=== PATIENT | male | born 1980 | race African-American/Black ===

== ENCOUNTER 2016-12-28 03:31 | Emergency (ER) | payer SELFPAY ==
--- NOTE | 2016-12-28 04:08 | ER Document Report ---
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 It started yesterday. No fever. No facial swelling. He has not had the money to fill his antihypertensive medications that are waiting at the pharmacy for him. Associated Symptoms: None Exacerbated by: Other - Eating Relieved by: Denies Similar symptoms previously: Yes Recently seen / treated by doctor: No - ROS ROS below otherwise negative: Yes Systems Reviewed and Negative: Yes All other systems reviewed and negative Past Medical History - General Information source: Patient - Social History Smoking Status: Current Every Day Smoker Frequency of alcohol use: None Drug Abuse: None Lives with: Spouse/Significant other Family History: Reviewed & Not Pertinent, Other - cerebral aneurysms - Past Medical History Cardiac Medical History: Reports: Hx Hypertension Neurological Medical History: Reports: Hx Migraine Surgical Hx: Negative - Immunizations Immunizations up to date: Yes Hx Diphtheria, Pertussis, Tetanus Vaccination: Yes - <5 years Vertical Provider Document - CONSTITUTIONAL Agree With Documented VS: Yes Exam Limitations: No Limitations - INFECTION CONTROL TRAVEL OUTSIDE OF THE [place] IN LAST 30 DAYS: No - HEENT HEENT: [place] Notes: Left top second molar decay to the pulp. No third molar present. Other teeth with decay. No abscess. No adenopathy. - NECK Neck: Supple. negative: Lymphadenopathy-Left, Lymphadenopathy-Right - RESPIRATORY Respiratory: Breath Sounds Normal, No Respiratory Distress - CARDIOVASCULAR Cardiovascular: Regular Rate, Regular Rhythm - MUSCULOSKELETAL/EXTREMETIES Musculoskeletal/Extremeties: MAEW, FROM - NEURO Level of Consciousness: Awake, Alert - DERM Integumentary: Warm, Dry Discharge - Discharge Clinical Impression: dental pain and decay Condition: Good Disposition: HOME, SELF-CARE Instructions: Penicillin V K ([facility]), Toothache ([facility]), Anti-Inflammatory Medication ([facility]), Dentist Additional Instructions: See the dentist Return to the emergency room if any worsening of the symptoms Take the antibiotics. Please complete the patient satisfaction survey if you get one, and return it.. If you do not receive a survey, then you can go to the [facility] website, [email or web address] and place your comments about your very good care. Thank you very much. It was a pleasure being your medical provider today. Prescriptions: Ibuprofen [Motrin 800 mg Tablet] 800 mg PO Q8HP PRN #30 tablet PRN Reason: Penicillin V Potassium [Penicillin Vk 500 mg Tablet] 500 mg PO QID #40 tablet
[2016-12-28] MEDS ORDERED: PENICILLIN V POTASSIUM 500 MG TABLET PO ONE (04:17)
[2016-12-28] MEDS ORDERED: IBUPROFEN 800 MG TABLET PO ONE (04:17)
[2016-12-28] MEDS ORDERED: ACETAMINOPHEN 325 MG TABLET PO ONE (04:20)
[2016-12-28 06:27] VITALS: BP 142/105
== END 2016-12-28 04:30 | disposition home or self-care (01) ==
LOC: ER 03:31
DX: K02.9 Dental caries, unspecified (principal); K08.89 Other specified disorders of teeth and supporting structures; I10 Essential (primary) hypertension; Z59.9 Problem related to housing and economic circumstances, unspecified; F17.200 Nicotine dependence, unspecified, uncomplicated
CPT/HCPCS: 99283

== ENCOUNTER 2017-01-27 04:31 | Emergency (ER) | payer SELFPAY ==
[2017-01-27 04:42] VITALS: BP 156/122
[2017-01-27] MEDS ORDERED: IBUPROFEN 800 MG TABLET PO ONE (06:42)
[2017-01-27] MEDS ORDERED: PENICILLIN V POTASSIUM 500 MG TABLET PO ONE (06:42)
--- NOTE | 2017-01-27 06:54 | ER Document Report ---
ED General - General Chief Complaint: Toothache Stated Complaint: TOOTH AND EAR PAIN TRAVEL OUTSIDE OF THE [place] IN LAST 30 DAYS: No - HPI Patient complains to provider of: dental pain Notes: Patient with multiple visits here to the ER for dental pain. Patient states now pain tooth #31 radiating to his right ear. Patient denies any fevers chills nausea vomiting difficulty speaking difficulty in breathing. Patient states he is unable to afford any dental care this time. Patient's blood pressure is elevated patient states he did not take his blood pressure medication this morning he does have medication at home. - Related Data Allergies/Adverse Reactions: No Known Allergies Allergy (Verified 10/31/15 17:07) Past Medical History - Social History Smoking Status: Unknown if Ever Smoked Family History: Reviewed & Not Pertinent, Other - cerebral aneurysms Patient has suicidal ideation: No Patient has homicidal ideation: No - Past Medical History Cardiac Medical History: Reports: Hx Hypertension Neurological Medical History: Reports: Hx Migraine Renal/ Medical History: Denies: Hx Peritoneal Dialysis - Immunizations Immunizations up to date: Yes Hx Diphtheria, Pertussis, Tetanus Vaccination: Yes - <5 years Review of Systems - Review of Systems Constitutional: No symptoms reported EENT: Other - Dental pain Cardiovascular: No symptoms reported Respiratory: No symptoms reported Gastrointestinal: No symptoms reported Genitourinary: No symptoms reported Male Genitourinary: No symptoms reported Musculoskeletal: No symptoms reported Skin: No symptoms reported Hematologic/Lymphatic: No symptoms reported Neurological/Psychological: No symptoms reported -: Yes All other systems reviewed and negative Physical Exam - Vital signs Vitals: Temp Pulse Resp BP Pulse Ox 98.4 F 76 24 H 156/122 H 99 01/27/17 04:39 01/27/17 04:39 01/27/17 04:39 01/27/17 04:39 01/27/17 04:39 Interpretation: Hypertensive - General General appearance: Appears well, Alert - HEENT Head: Normocephalic, Atraumatic Eyes: Normal Pupils: PERRL Ears: Normal External canal: Normal Tympanic membrane: Normal Notes: Patient with diffuse dental disease. Patient does have tooth #31 with a feeling and a chip in the tooth. There is no signs of dental abscess or cellulitis. - Respiratory Respiratory status: No respiratory distress Chest status: Nontender Breath sounds: Normal Chest palpation: Normal - Cardiovascular Rhythm: Regular Heart sounds: Normal auscultation Murmur: No - Abdominal Inspection: Normal Distension: No distension Bowel sounds: Normal Tenderness: Nontender Organomegaly: No organomegaly - Back Back: Normal, Nontender - Extremities General upper extremity: Normal inspection, Nontender, Normal color, Normal ROM , Normal temperature General lower extremity: Normal inspection, Nontender, Normal color, Normal ROM , Normal temperature, Normal weight bearing. No: Marylou's sign - Neurological Neuro grossly intact: Yes Cognition: Normal Orientation: AAOx4 [place] Coma Scale Eye Opening: Spontaneous [place] Coma Scale Verbal: Oriented [place] Coma Scale Motor: Obeys Commands [place] Coma Scale Total: 15 Speech: Normal Motor strength normal: LUE, RUE, LLE, RLE Sensory: Normal - Psychological Associated symptoms: Normal affect, Normal mood - Skin Skin Temperature: Warm Skin Moisture: Dry Skin Color: Normal Course - Re-evaluation Re-evalutation: 01/27/17 08:00 Patient was given penicillin will treat with anti-inflammatory medication. Patient was discharged home. - Vital Signs Vital signs: Temp Pulse Resp BP Pulse Ox 98.4 F 76 24 H 156/122 H 99 01/27/17 04:39 01/27/17 04:39 01/27/17 04:39 01/27/17 04:39 01/27/17 04:39 Discharge - Discharge Clinical Impression: Dentalgia Condition: Good Disposition: HOME, SELF-CARE Instructions: [facility], Penicillin V K ([facility]), Toothache ([facility]), Dentist Additional Instructions: Take medication as prescribed. He is very important she follow-up with a dentist for further evaluation of your teeth more likely he will need to have someone for your teeth pulled. Please take your blood pressure medication Prescriptions: Ibuprofen [Motrin 800 mg Tablet] 800 mg PO Q8H PRN #30 tab PRN Reason: Penicillin V Potassium [Penicillin Vk 500 mg Tablet] 500 mg PO BID #20 tablet Forms: Elevated Blood Pressure
== END 2017-01-27 07:08 | disposition home or self-care (01) ==
LOC: ER 04:31
DX: K08.89 Other specified disorders of teeth and supporting structures (principal); I10 Essential (primary) hypertension; Z59.9 Problem related to housing and economic circumstances, unspecified; Z79.899 Other long term (current) drug therapy
CPT/HCPCS: 99282

== ENCOUNTER 2017-02-25 17:17 | Emergency (ER) | payer SELFPAY ==
[2017-02-25] MEDS ORDERED: OXYCODONE-ACETAMINOPHEN 5-325 MG TABLET ONE (20:46)
[2017-02-25] MEDS ORDERED: PENICILLIN V POTASSIUM 500 MG TABLET ONE (20:51)
== END 2017-02-25 20:45 | disposition home or self-care (01) ==
LOC: ER 17:17
DX: K08.9 Disorder of teeth and supporting structures, unspecified (principal); I10 Essential (primary) hypertension
CPT/HCPCS: 99283

== ENCOUNTER 2017-03-14 07:29 | Emergency (ER) | payer SELFPAY ==
[2017-03-14] MEDS ORDERED: BENZONATATE 100 MG CAPSULE PO ONE (08:26)
--- NOTE | 2017-03-14 08:32 | ER Document Report ---
HPI - HPI Patient complains to provider of: dental pain Onset: Yesterday Onset/Duration: Sudden Quality of pain: Achy Severity: Severe Pain Level: 5 Context: Patient presents emergency department with complaints of left upper dental pain. Reports started hurting last night. Reports he recently had his other bad tooth pulled. He was given a prescription for antibiotics at that time but did not pick them up because he said he could not afford it. 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 Now he has to save up to get this tooth pulled. Denies other symptoms such as fever vomiting diarrhea. Associated Symptoms: None Exacerbated by: Denies Relieved by: Denies Similar symptoms previously: No Recently seen / treated by doctor: No - DERM Skin Color: Normal Past Medical History - General Information source: Patient - Social History Smoking Status: Current Every Day Smoker Cigarette use (# per day): Yes Frequency of alcohol use: Occasional Drug Abuse: Marijuana Lives with: Family Family History: Reviewed & Not Pertinent, Other - cerebral aneurysms Patient has suicidal ideation: No Patient has homicidal ideation: No - Past Medical History Cardiac Medical History: Reports: Hx Hypertension Neurological Medical History: Reports: Hx Migraine Renal/ Medical History: Denies: Hx Peritoneal Dialysis Surgical Hx: Negative - Immunizations Immunizations up to date: Yes Hx Diphtheria, Pertussis, Tetanus Vaccination: Yes - <5 years Vertical Provider Document - CONSTITUTIONAL Agree With Documented VS: Yes Exam Limitations: No Limitations General Appearance: WD/WN, Mild Distress - holding mouth - INFECTION CONTROL TRAVEL OUTSIDE OF THE [place] IN LAST 30 DAYS: No - HEENT HEENT: Atraumatic, Normocephalic. negative: Pharyngeal Exudate, Pharyngeal Erythema, Tympanic Membrane Red, Tympanic Membrane Bulging Mouth Diagram: 1 - #16 c/o pain, cavity noted, opens mouth wide, clear voice, good airway, no ludwigs - NECK Neck: Normal Inspection, Supple. negative: Lymphadenopathy-Left, Lymphadenopathy-Right - RESPIRATORY Respiratory: No Respiratory Distress O2 Sat by Pulse Oximetry: 96 - CARDIOVASCULAR Cardiovascular: Regular Rate - MUSCULOSKELETAL/EXTREMETIES Musculoskeletal/Extremeties: TOÑO RESENDEZ - NEURO Level of Consciousness: Awake, Alert, Appropriate Motor/Sensory: No Motor Deficit - DERM Integumentary: Warm, Dry Course - Re-evaluation Re-evalutation: 03/14/17 08:51 Patient reports Mariola Lopez does not help his pain. He was encouraged to follow-up with his dentist next week take his medications as prescribed - Vital Signs Vital signs: Temp Pulse Resp BP Pulse Ox 98.3 F 69 20 185/112 H 96 03/14/17 07:34 03/14/17 07:34 03/14/17 07:34 03/14/17 07:34 03/14/17 07:34 Discharge - Discharge Clinical Impression: Pain, dental, Elevated blood pressure reading Condition: Stable Disposition: HOME, SELF-CARE Instructions: Penicillin V K ([facility]), Toothache ([facility]), Acetaminophen with Codeine ([facility]) Additional Instructions: *You have been evaluated for dental pain *Take medications as prescribed *Follow up with your dentist Thursday *Return to ED for worsening condition, changes, needs Monitor your blood pressure. Your blood pressure was elevated today. This may be because you were anxious, in pain or because you need medication. It is important to follow up with your primary care provider for full evaluation. Prescriptions: Acetaminophen with Codeine [Tylenol #3 Tablet] 1 each PO Q4HP PRN #30 tablet PRN Reason: Penicillin V Potassium [Penicillin Vk 250 mg Tablet] 500 mg PO BID #40 tablet Forms: Elevated Blood Pressure
[2017-03-14] MEDS ORDERED: IBUPROFEN 800 MG TABLET PO ONE (08:50)
[2017-03-14 08:56] VITALS: BP 192/127
== END 2017-03-14 09:00 | disposition home or self-care (01) ==
LOC: ER 07:29
DX: K02.9 Dental caries, unspecified (principal); K08.89 Other specified disorders of teeth and supporting structures; F17.210 Nicotine dependence, cigarettes, uncomplicated; I10 Essential (primary) hypertension; Z98.890 Other specified postprocedural states
CPT/HCPCS: 99282

== ENCOUNTER 2017-04-14 08:53 | Emergency (ER) | payer SELFPAY ==
[2017-04-14] MEDS ORDERED: MAG HYDROX/AL HYDROX/SIMETH SUSP 30 ML UDCUP PO ONE (09:12)
[2017-04-14] MEDS ORDERED: LIDOCAINE 2% VISCOUS SOLN 20 ML UDCUP PO ONE (09:12)
[2017-04-14] MEDS ORDERED: METOCLOPRAMIDE HCL ORAL SOLN 10 MG/10 ML UDCUP PO ONE (09:12)
--- NOTE | 2017-04-14 09:15 | ER Document Report ---
ED GI/ - General Chief Complaint: Abdominal Pain Stated Complaint: ABDOMINAL PAIN Time Seen by Provider: 04/14/17 09:08 Notes: The patient is a 37-year-old male, past medical history pancreatitis, former heavy alcohol drinker, hypertension, smoker, presents with 7 hours of epigastric pain and nausea. He is unsure if this is his pancreatitis again. He is also having 2 weeks of loose stools, but denies blood in stool, recent travel or recent antibiotic use. Denies chest pain, shortness of breath, fevers , urinary symptoms, rash or headache. TRAVEL OUTSIDE OF THE [place] IN LAST 30 DAYS: No - Related Data Allergies/Adverse Reactions: No Known Allergies Allergy (Verified 03/14/17 07:33) Past Medical History - General Information source: Patient - Social History Smoking Status: Current Every Day Smoker Frequency of alcohol use: Social Drug Abuse: Marijuana Family History: Reviewed & Not Pertinent, Other - cerebral aneurysms Patient has suicidal ideation: No Patient has homicidal ideation: No - Past Medical History Cardiac Medical History: Reports: Hx Hypertension Neurological Medical History: Reports: Hx Migraine Renal/ Medical History: Denies: Hx Peritoneal Dialysis - Immunizations Immunizations up to date: Yes Hx Diphtheria, Pertussis, Tetanus Vaccination: Yes - <5 years Review of Systems - Review of Systems Notes: REVIEW OF SYSTEMS: CONSTITUTIONAL: -fevers, -chills EENT: -eye pain, -difficulty swallowing, -nasal congestion CARDIOVASCULAR:-chest pain, -syncope. RESPIRATORY: -cough, -SOB GASTROINTESTINAL: +epigastric abdominal pain, +nausea, -vomiting, -diarrhea GENITOURINARY: -dysuria, -hematuria MUSCULOSKELETAL: -back pain, -neck pain SKIN: -rash or skin lesions. HEMATOLOGIC: -easy bruising or bleeding. LYMPHATIC: -swollen, enlarged glands. NEUROLOGICAL: -altered mental status or loss of consciousness, -headache, - neurologic symptoms PSYCHIATRIC: -anxiety, -depression. ALL OTHER SYSTEMS REVIEWED AND NEGATIVE. Physical Exam - Vital signs Vitals: Temp Pulse Resp BP Pulse Ox 98.1 F 66 14 160/101 H 100 04/14/17 09:06 04/14/17 09:06 04/14/17 09:06 04/14/17 09:06 04/14/17 09:06 - Notes Notes: PHYSICAL EXAMINATION: GENERAL: Well-appearing, well-nourished and in no acute distress. HEAD: Atraumatic, normocephalic. EYES: Pupils equal round and reactive to light, extraocular movements intact, sclera anicteric, conjunctiva are normal. ENT: nares patent, oropharynx clear without exudates. Moist mucous membranes. NECK: Normal range of motion, supple without lymphadenopathy LUNGS: Breath sounds clear to auscultation bilaterally and equal. No wheezes rales or rhonchi. HEART: Regular rate and rhythm without murmurs ABDOMEN: Soft, mild epigastric tenderness, normoactive bowel sounds. No guarding, no rebound. No masses appreciated. EXTREMITIES: Normal range of motion, no pitting or edema. No cyanosis. NEUROLOGICAL: Cranial nerves grossly intact. Normal speech, normal gait. Normal sensory and motor exams. PSYCH: Normal mood, normal affect. SKIN: Warm, Dry, normal turgor, no rashes or lesions noted. Course - Re-evaluation Re-evalutation: Patient appears well. His lipase is slightly elevated, but he has had much higher values in the past. He is tolerating fluids by mouth without any nausea or pain. He has had multiple ultrasounds that did not show any evidence of gallstones. Offered patient admission, but patient feels well and would like to go home since it's 14 of April. We will send home with antinausea medicine, Protonix and pain medicine with strict return precautions. Instructed him not to drink any alcohol today. He undersants. He will also f/u with the [facility] to have his BP rechecked since it was elevated today. He said he took his Lisinopril this morning. - Vital Signs Vital signs: Temp Pulse Resp BP Pulse Ox 98.4 F 69 16 160/109 H 100 04/14/17 10:07 04/14/17 10:07 04/14/17 10:07 04/14/17 10:07 04/14/17 10:07 - Laboratory Result Diagrams: 04/14/17 09:19 04/14/17 09:19 Laboratory results interpreted by me: 04/14/17 04/14/17 09:19 09:19 RBC 4.22 L RDW 14.1 H Eosinophils % 6.4 H Total Protein 8.3 H Lipase 721.6 H Discharge - Discharge Clinical Impression: Epigastric pain Condition: Stable Disposition: HOME, SELF-CARE Additional Instructions: Pancreatitis Pancreatitis is an inflammation of the pancreas, an organ at the back of your abdomen. The pancreas produces insulin and enzymes that digest your food. Pancreatitis can be caused by gallstones in the bile duct, by alcohol or viruses, or by excess fat or calcium in the blood stream. Occasionally, pancreatitis occurs when a stomach ulcer keating through into the pancreas. We try to find the cause of pancreatitis, but some tests can't be done until the pancreas heals. The usual symptoms of pancreatitis are pain in the pit of the stomach that goes straight through to the back, vomiting, and low-grade fever. Severe cases require hospital admission, but many patients with mild pancreatitis do well at home. You will probably need medicine for pain and for vomiting. Sometimes we prescribe medicine to decrease stomach acid secretion and to decrease flow of pancreatic juices. Start with a diet of clear liquids (soda pop, juices). When the pain is decreasing, you can add some simple starches (potato, toast, applesauce). Avoid proteins and fats until you are completely painfree. When you're better, your doctor may suggest treatment to prevent future pancreatitis (such as gallbladder removal). Avoid alcohol forever. Get immediate treatment for any future episodes. Contact your doctor at once or return here if you have increasing pain, shortness of breath, general swelling, increasing size of the abdomen, continued vomiting, muscle spasms, or other new symptoms. Prescriptions: Hydrocodone/Acetaminophen [[place] 5-325 mg Tablet] 1 tab PO Q6H PRN #12 tablet PRN Reason: Omeprazole Magnesium [Prilosec Otc] 20 mg PO Q12H #20 tablet. Ondansetron [Zofran Odt 4 mg Tablet] 1 - 2 tab PO Q4H PRN #15 tab.rapdis PRN Reason: For Nausea/Vomiting Forms: Elevated Blood Pressure Referrals: ELBERT MOSES MD [ACTIVE STAFF] - Follow up as needed [facility] [Provider Group] - Follow up as needed
[2017-04-14 09:28] LABS: ABSOLUTE EOSINOPHILS # (AUTO) 0.6 10^3/uL (0.0-0.6); ABSOLUTE LYMPHOCYTES (AUTO) 2.4 10^3/uL (0.5-4.7); ABSOLUTE NEUT (AUTO) 4.7 10^3/uL (1.7-8.2); BASOPHILS % (AUTO) 0.4 % (0-2); EOSINOPHILS % (AUTO) 6.4 % (0-6); HEMATOCRIT 40.9 % (37.9-51.0); HEMOGLOBIN 13.6 g/dL (13.5-17.0); HGB HCT DIFFERENCE -0.1; LYMPHOCYTES % (AUTO) 27.4 % (13-45); MEAN CORPUSCULAR HEMOGLOBIN 32.2 pg (27.0-33.4); MEAN CORPUSCULAR HGB CONC 33.1 g/dL (32.0-36.0); MEAN CORPUSCULAR VOLUME 97 fl (80-97); MONOCYTES % (AUTO) 11.2 % (3-13); RED BLOOD COUNT 4.22 10^6/uL (4.35-5.55); RED CELL DISTRIBUTION WIDTH 14.1 % (11.5-14.0); SEGMENTED NEUTROPHILS % (AUTO) 54.6 % (42-78); WHITE BLOOD COUNT 8.7 10^3/uL (4.0-10.5)
[2017-04-14 09:46] LABS: ALANINE AMINOTRANSFERASE 23 U/L (21-72); ALBUMIN 4.5 g/dL (3.5-5.0); ALKALINE PHOSPHATASE 69 U/L (38-126); ANION GAP 10 (5-19); ASPARTATE AMINO TRANSFERASE 19 U/L (17-59); BILIRUBIN,DIRECT 0.3 mg/dL (0.0-0.4); BILIRUBIN,TOTAL 0.5 mg/dL (0.2-1.3); BLOOD UREA NITROGEN 13 mg/dL (7-20); CALCIUM 9.7 mg/dL (8.4-10.2); CARBON DIOXIDE 27 mmol/L (22-30); CHLORIDE 104 mmol/L (98-107); CREATININE RESULT 1.01 mg/dL (0.52-1.25); GLUCOSE 106 mg/dL (75-110); LIPASE 721.6 U/L (23-300); POTASSIUM 4.1 mmol/L (3.6-5.0); SODIUM 141.1 mmol/L (137-145); TOTAL PROTEIN 8.3 g/dL (6.3-8.2)
[2017-04-14 10:10] VITALS: BP 160/109
[2017-04-14] MEDS ORDERED: HYDROCODONE/ACETAMINOPHEN 5-325 MG TABLET PO ONE (10:10)
== END 2017-04-14 10:20 | disposition home or self-care (01) ==
LOC: ER 08:53
DX: R10.13 Epigastric pain (principal); R11.0 Nausea; R19.4 Change in bowel habit; R74.8 Abnormal levels of other serum enzymes; I10 Essential (primary) hypertension; F17.200 Nicotine dependence, unspecified, uncomplicated; Z87.19 Personal history of other diseases of the digestive system; Z79.899 Other long term (current) drug therapy
CPT/HCPCS: 99284; 36415; 83690; 85025; 80053; J3490

== ENCOUNTER 2017-10-11 23:22 | Emergency (ER) | payer SELFPAY ==
[2017-10-12] MEDS ORDERED: KETOROLAC TROMETHAMINE INJ/PF 30 MG/1 ML SDV IV ONE (00:42)
[2017-10-12] MEDS ORDERED: PROCHLORPERAZINE EDISYLATE INJ 10 MG/2 ML VIAL IV ONE (00:42)
[2017-10-12] MEDS ORDERED: ONDANSETRON HCL INJ/PF 4 MG/2 ML SDV IV ONE (00:42)
[2017-10-12] MEDS ORDERED: NORMAL SALINE 1000 ML 1,000 ML IV ONE (00:42)
[2017-10-12] MEDS ORDERED: CLONIDINE HCL 0.1 MG TABLET PO ONE (00:43)
--- NOTE | 2017-10-12 02:28 | ER Document Report ---
ED General - General Chief Complaint: Headache Stated Complaint: VOMITING Time Seen by Provider: 10/12/17 00:41 TRAVEL OUTSIDE OF THE [place] IN LAST 30 DAYS: No - HPI Patient complains to provider of: Headache elevated blood pressure Notes: Patient coming in for the above-stated symptoms patient states ongoing for the last 3 days. Patient is elevated blood pressure ongoing for the last few weeks patient states has not had any of his medication clonidine or lisinopril for approximately 1 year. Patient states he has been smoking marijuana. Patient states he is unable at this time to have his medications are for his medications also does not have a primary care physician. Patient localizes his headache to the orbital region and to his face. Denies actual frontal headache denies any trauma denies any cocaine abuse denies any fevers chills nausea vomiting. Patient seen ambulating around the ER prior to my evaluation. Patient resting comfortably. - Related Data Allergies/Adverse Reactions: No Known Allergies Allergy (Verified 10/11/17 23:23) Past Medical History - Social History Smoking Status: Unknown if Ever Smoked Family History: Reviewed & Not Pertinent, Other - cerebral aneurysms Patient has suicidal ideation: No Patient has homicidal ideation: No - Past Medical History Cardiac Medical History: Reports: Hx Hypertension Neurological Medical History: Reports: Hx Migraine Renal/ Medical History: Denies: Hx Peritoneal Dialysis - Immunizations Immunizations up to date: Yes Hx Diphtheria, Pertussis, Tetanus Vaccination: Yes - <5 years Review of Systems - Review of Systems Constitutional: No symptoms reported EENT: No symptoms reported Cardiovascular: No symptoms reported Respiratory: No symptoms reported Gastrointestinal: Vomiting Genitourinary: No symptoms reported Male Genitourinary: No symptoms reported Musculoskeletal: No symptoms reported Skin: No symptoms reported Hematologic/Lymphatic: No symptoms reported Neurological/Psychological: Headaches -: Yes All other systems reviewed and negative Physical Exam - Vital signs Vitals: Temp Pulse Resp BP Pulse Ox 98.6 F 88 16 170/106 H 100 10/11/17 23:28 10/11/17 23:28 10/11/17 23:28 10/11/17 23:28 10/11/17 23:28 Interpretation: Hypertensive - General General appearance: Appears well, Alert - HEENT Head: Normocephalic, Atraumatic Eyes: Normal Pupils: PERRL - Respiratory Respiratory status: No respiratory distress Chest status: Nontender Breath sounds: Normal Chest palpation: Normal - Cardiovascular Rhythm: Regular Heart sounds: Normal auscultation Murmur: No - Abdominal Inspection: Normal Distension: No distension Bowel sounds: Normal Tenderness: Nontender Organomegaly: No organomegaly - Back Back: Normal, Nontender - Extremities General upper extremity: Normal inspection, Nontender, Normal color, Normal ROM , Normal temperature General lower extremity: Normal inspection, Nontender, Normal color, Normal ROM , Normal temperature, Normal weight bearing. 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 The patient is neurologically intact. Given the extremely low risk of these diagnoses further testing and evaluation for these possibilities does not appear to be indicated at this time. The patient has been instructed to return if the symptoms worsen or change in any way.. Patient feeling better after medication blood pressure improved. Patient was given a prescription for Reglan for nausea and lisinopril. Explained to the patient that if he is only noncompliant with medication diet did not feel comfortable giving him clonidine prescription. - Vital Signs Vital signs: Temp Pulse Resp BP Pulse Ox 98.6 F 82 18 147/103 H 97 10/11/17 23:28 10/12/17 02:31 10/12/17 02:31 10/12/17 02:31 10/12/17 02:31 Discharge - Discharge Clinical Impression: Nausea & vomiting Qualifiers: Vomiting type: unspecified Vomiting Intractability: non-intractable Qualified Code(s): R11.2 - Nausea with vomiting, unspecified Headache Qualifiers: Headache type: unspecified Headache chronicity pattern: unspecified pattern Intractability: not intractable Qualified Code(s): R51 - Headache Hypertension Qualifiers: Hypertension type: unspecified Qualified Code(s): I10 - Essential (primary) hypertension Condition: Good Disposition: HOME, SELF-CARE Instructions: Abdominal Pain ([facility]), Headache ([facility]), High Blood Pressure ([facility]) Additional Instructions: Stop smoking. Use the money that you save by not smoking and buy your blood pressure medication. Take other medication as prescribed for your nausea. Prescriptions: Lisinopril 20 mg PO DAILY #30 tablet Metoclopramide HCl [Reglan] 5 mg PO Q6 #20 tablet Referrals: [facility] [Provider Group] - Follow up as needed
[2017-10-12 02:32] VITALS: BP 147/103
== END 2017-10-12 02:31 | disposition home or self-care (01) ==
LOC: ER 23:22
DX: R11.2 Nausea with vomiting, unspecified (principal); R51 Headache; I10 Essential (primary) hypertension; Z79.899 Other long term (current) drug therapy
CPT/HCPCS: 99283; 96361; 96374; 96375; J1885; J0780; J2405; J7030

== ENCOUNTER 2017-10-13 12:22 | Emergency (ER) | payer OTHER ==
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
[2017-10-13] MEDS ORDERED: KETOROLAC TROMETHAMINE 60 MG/2 ML SDV IM ONE (13:23)
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
[2017-10-13] MEDS ORDERED: CLONIDINE HCL 0.1 MG TABLET PO ONE (14:14)
[2017-10-13 14:31] VITALS: BP 159/100
== END 2017-10-13 14:32 | disposition home or self-care (01) ==
LOC: ER 12:22
DX: M62.830 Muscle spasm of back (principal); M54.5 Low back pain; Y04.0XXA Assault by unarmed brawl or fight, initial encounter; Y92.89 Other specified places as the place of occurrence of the external cause; F17.200 Nicotine dependence, unspecified, uncomplicated; I10 Essential (primary) hypertension
CPT/HCPCS: 99283; 96372; 72110; J1885

== ENCOUNTER 2018-08-06 10:36 | Emergency (ER) | payer SELFPAY ==
[2018-08-06 10:53] VITALS: BP 100/67
[2018-08-06] MEDS ORDERED: KETOROLAC TROMETHAMINE 60 MG/2 ML SDV IM ONE (11:18)
--- NOTE | 2018-08-06 11:21 | ER Document Report ---
ED Medical Screen (RME) - General Chief Complaint: Shoulder Injury Stated Complaint: RIGHT ARM PAIN Time Seen by Provider: 08/06/18 11:17 Mode of Arrival: Ambulatory Information source: Patient Notes: This is a 38-year-old man that presents to the emergency room with right shoulder pain. 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 Patient states he has a difficult time lifting his right shoulder above his head. He reports having a lot of pain at night. Past medical history: Hypertension TRAVEL OUTSIDE OF THE [place] IN LAST 30 DAYS: No - HPI Onset: Yesterday Onset/Duration: Sudden Quality of pain: Dull Severity: Moderate Pain Level: 3 Associated Symptoms: denies: Chest pain, Fever, Shortness of breath Exacerbated by: Denies Relieved by: Denies Similar symptoms previously: No Recently seen / treated by doctor: No - Related Data Smoking: Non-smoker Frequency of alcohol use: None Drug Abuse: None Allergies/Adverse Reactions: No Known Allergies Allergy (Verified 10/13/17 12:24) Past Medical History - General Information source: Patient - Social History Cigarette use (# per day): No Chew tobacco use (# tins/day): No Frequency of alcohol use: None Drug Abuse: None Lives with: Family Family history: None - Past Medical History Cardiac Medical History: Reports: Hx Hypertension Neurological Medical History: Reports: Hx Migraine Renal/ Medical History: Denies: Hx Peritoneal Dialysis Surgical Hx: Negative - Immunizations Immunizations up to date: Yes Hx Diphtheria, Pertussis, Tetanus Vaccination: Yes - <5 years Review of Systems - Review of Systems Constitutional: denies: Chills, Fever EENT: No symptoms reported Cardiovascular: No symptoms reported Respiratory: No symptoms reported Gastrointestinal: No symptoms reported Genitourinary: No symptoms reported Male Genitourinary: No symptoms reported Musculoskeletal: See HPI Skin: No symptoms reported Hematologic/Lymphatic: No symptoms reported Neurological/Psychological: No symptoms reported Physical Exam - Vital signs Vitals: Temp Pulse BP Pulse Ox 98.2 F 96 100/67 98 08/06/18 10:52 08/06/18 10:52 08/06/18 10:52 08/06/18 10:52 Notes: Physical exam: GENERAL: She is alert and oriented no acute distress HEAD: Atraumatic, normocephalic. EYES: Pupils equal round and reactive to light, extraocular movements intact, sclera anicteric, conjunctiva are normal. ENT: Moist mucous membranes. NECK: Normal range of motion, supple without obvious mass. LUNGS: Breath sounds clear to auscultation bilaterally and equal. No wheezes rales or rhonchi. EXTREMITIES: Right shoulder: No deformities, no skin changes, no swelling. Patient does have good cap refill and good radial pulse distally. Patient does have pain with abduction above 30 degrees. Patient is able to passively perform range of motion exercises with some discomfort. NEUROLOGICAL: Cranial nerves II through XII grossly intact. Normal speech, moving all extremities. PSYCH: Normal mood, normal affect. SKIN: Warm, Dry, normal turgor, no rashes or lesions noted. Course - Vital Signs Vital signs: Temp Pulse Resp BP Pulse Ox 98.2 F 96 100/67 98 08/06/18 10:52 08/06/18 10:52 08/06/18 10:52 08/06/18 10:52 - Diagnostic Test Radiology reviewed: Image reviewed, Reports reviewed - As of the shoulder show no acute bony injury Procedures - Additional Procedures Subacromial bursa injection Time performed: 12:16 Notes: 08/06/18 12:16 Verbal consent was obtained. 2 cc of 0.5% bupivacaine and 1 cc of 40 mg of Solu-Medrol was injected into the right shoulder. The field was without any obvious skin lesions. ChloraPrep was used Patient tolerated procedure well. Doctor's Discharge - Discharge Clinical Impression: Right shoulder pain Condition: Stable Disposition: HOME, SELF-CARE Instructions: Oral Narcotic Medication ([facility]) Additional Instructions: As we discussed, the x-rays showed no bony injury: No fractures or dislocation. I do suspect he may have a rotator cuff injury: This is why I gave you the number for the shoulder surgeon. Rest the shoulder over the weekend. Apply ice over the shoulder several times a day for the next 2 or 3 days. Take ibuprofen every 6 hours for pain Take oxycodone for pain not relieved by the ibuprofen. Do not take oxycodone when at work or when driving. You can add Tylenol every 4-6 hours as well The pain medicine you're taking prescribed as a narcotic. There are several important things you should know about this medicine: 1. Taking narcotics for too long can lead to physical and mental dependence. Take this medicine only if really needed and in the lowest quantity to achieve pain relief. 2. Do not drink alcohol while on this medicine. Alcohol interacts with narcotics and the combination can be dangerous. 3. Do not drive or operate machinery while on this medicine. 4. Narcotics do cause constipation, so drink plenty of fluids and daily stool softeners. Prescriptions: Oxycodone HCl 5 mg PO Q6HP PRN #14 tablet PRN Reason: Forms: Return to Work Referrals: JUAN ANTONIO JOSHI MD [ACTIVE STAFF] - Follow up as needed (This is the number the orthopedic surgeon. To call the clinic on Thursday for an appointment. Tell them that the ER doctor would suspect that he may have a rotator cuff injury)
--- NOTE | 2018-08-06 11:47 | RADIOLOGY REPORT (SQ) ---
EXAM DESCRIPTION: SHOULDER RIGHT 2 OR MORE VIEWS COMPLETED DATE/TIME: 08/06/2018 11:28 am REASON FOR STUDY: right shoulder pain COMPARISON: None. NUMBER OF VIEWS: Three views. TECHNIQUE: Internal rotation, external rotation, and Y view images acquired of the right shoulder. LIMITATIONS: None. FINDINGS: MINERALIZATION: Normal. BONES: No acute fracture or dislocation. No worrisome bone lesions. JOINTS: No dislocation. VISUALIZED LUNGS AND RIBS: No pneumothorax. No rib fracture. SOFT TISSUES: No radiopaque foreign body. OTHER: No other significant finding. IMPRESSION: NEGATIVE STUDY OF THE RIGHT SHOULDER. NO RADIOGRAPHIC EVIDENCE OF ACUTE INJURY. TECHNICAL DOCUMENTATION: JOB ID: [id number] [employer]- All Rights Reserved Reading location - IP/workstation name: [email or web address]
[2018-08-06] MEDS ORDERED: METHYLPREDNISOLONE INJ 40 MG/1 ML SDV ONE (11:55)
[2018-08-06] MEDS ORDERED: BUPIVACAINE HCL 0.5 % INJ/PF 30 ML SDV ONE (11:55)
[2018-08-06] MEDS ORDERED: BUPIVACAINE HCL 0.5 % INJ/PF 30 ML SDV INJ ONE (11:55)
[2018-08-06] MEDS ORDERED: METHYLPREDNISOLONE INJ 40 MG/1 ML SDV IV ONE (11:56)
== END 2018-08-06 12:21 | disposition home or self-care (01) ==
LOC: ER 10:36
DX: S49.91XA Unspecified injury of right shoulder and upper arm, initial encounter (principal); X58.XXXA Exposure to other specified factors, initial encounter; Y99.0 Civilian activity done for income or pay; I10 Essential (primary) hypertension
CPT/HCPCS: 99283; 96372; 73030; 20610; J3490; J1885; J2920

== ENCOUNTER 2018-08-12 09:57 | Emergency (ER) | payer SELFPAY ==
[2018-08-12 10:11] VITALS: BP 120/78
[2018-08-12] MEDS ORDERED: HYDROCODONE/ACETAMINOPHEN 5-325 MG (6 TAB/ER DISP) PO PRN (11:06)
--- NOTE | 2018-08-12 11:12 | ER Document Report ---
HPI - HPI Pain Level: 4 Notes: Patient is a 38-year-old male who presents to the emergency department with chief complaint of right shoulder pain. Patient reports he injured his shoulder last week when he was trying to break a bolts with a pair of bolt cutters. He states that he was seen here in the emergency department and told to follow-up with his primary care provider. He complains of worsening pain, states he does not have insurance and is unsure how to follow-up with anyone. Patient denies any new complaints or new injury. - CONSTITUTIONAL Constitutional: DENIES: Fever, Chills - EENT EENT: DENIES: Sore Throat, Ear Pain, Eye problems - NEURO Neurology: DENIES: Headache, Weakness, Vision blurred, Dizzinesss / Vertigo - CARDIOVASCULAR Cardiovascular: DENIES: Chest pain - RESPIRATORY Respiratory: DENIES: Trouble Breathing, Coughing - GASTROINTESTINAL Gastrointestinal: DENIES: Abdominal Pain, Black / Bloody Stools - URINARY Urinary: DENIES: Dysuria, Urgency, Frequency - MUSCULOSKELETAL Musculoskeletal: REPORTS: Extremity pain - right shoulder Past Medical History - General Information source: Patient - Social History Smoking Status: Current Every Day Smoker Chew tobacco use (# tins/day): No Frequency of alcohol use: None Drug Abuse: None Family History: Reviewed & Not Pertinent, Other - cerebral aneurysms Patient has suicidal ideation: No Patient has homicidal ideation: No - Past Medical History Cardiac Medical History: Reports: Hx Hypertension Neurological Medical History: Reports: Hx Migraine Renal/ Medical History: Denies: Hx Peritoneal Dialysis - Immunizations Immunizations up to date: Yes Hx Diphtheria, Pertussis, Tetanus Vaccination: Yes - <5 years Vertical Provider Document - CONSTITUTIONAL Notes: PHYSICAL EXAMINATION: GENERAL: Well-appearing, well-nourished and in no acute distress. HEAD: Atraumatic, normocephalic. EYES: Pupils equal round extraocular movements intact, conjunctiva are normal. ENT: Nares patent NECK: Normal range of motion LUNGS: No respiratory distress Musculoskeletal: Limited range of motion to right shoulder, normal pulses, sensation and motor distal to injury. NEUROLOGICAL: Normal speech, normal gait. PSYCH: Normal mood, normal affect. SKIN: Warm, Dry, normal turgor, no rashes or lesions noted. - INFECTION CONTROL TRAVEL OUTSIDE OF THE [place] IN LAST 30 DAYS: No Course - Re-evaluation Re-evalutation: Assisted patient with applying for [facility] so that he can follow up with either [place] [facility] or [facility]. Patient does appear to be in moderate distress of pain medication was given. Patient instructed to take ibuprofen. Patient was given information on shoulder exercises and also education on frozen shoulder so that he can try to avoid that. Patient discharged in stable condition. - Vital Signs Vital signs: Temp Pulse Resp BP Pulse Ox 98.5 F 96 18 120/78 98 08/12/18 10:09 08/12/18 10:09 08/12/18 10:09 08/12/18 10:09 08/12/18 10:09 Procedures - Immobilization Right arm Immobilizer type: Sling Discharge - Discharge Clinical Impression: Shoulder pain, right Qualifiers: Chronicity: unspecified Qualified Code(s): M25.511 - Pain in right shoulder Condition: Stable Disposition: HOME, SELF-CARE Additional Instructions: Shoulder Injury You have injured your shoulder. This usually results from stretching or tearing of the tendons during trauma. Time and protection are required in order to heal properly. Many injuries are quite disabling, and should be taken seriously. Initial treatment includes cold packs and a sling to rest the shoulder. The physician has assessed the seriousness of your injury, and has outlined a treatment plan. Understand that this treatment may change, depending on how you progress. If a re-examination was recommended, it is important that you follow up as instructed. Some shoulder injuries (such as partial tear of the rotator cuff) are only suspected after you've failed to improve. Call us if there's severe pain, numbness, or loss of function. Exercise Program for the Shoulder Since the shoulder moves in so many directions, the joint attachment is weak. Muscles provide most of the stability to the shoulder. You must exercise your shoulder to prevent painful instability or stiffening. PASSIVE - These may be begun within a few days of the injury. While standing, lean forward, allowing the arm to hang down towards the floor. Move the arm in small circles while slowly twisting your chest towards and away from the hanging arm. Do this for one minute. ACTIVE - These may be performed when the doctor gives permission. Begin with the arms at the sides. Raise the arms forward (shoulder's width apart) until they reach shoulder level. Then slowly swing both arms back until they are aiming straight out away from each other. Then bring them forward again, and finally, lower them to your sides. Repeat 20 to 30 times. As you improve, put weights in your hands for the exercise. Start with one pound, and work up to 10 pounds. Never use more than is comfortable. Athletes may work up to 30 pounds. Please continue to take the ibuprofen 800 mg every 8 hours. This will continue to help with pain and inflammation. Use the narcotic pain medication only for severe pain. Take 1/2-1 tablet every 4 hours. Please try to follow- up with either [place] primary care or our surgical group I have enclosed both of the information on this paper. You likely need an MRI to rule out a rotator cuff tear. You can use the sling that I have provided but only use it for short amount of time. Do the exercises as outlined above very gradually, as we discussed I do not want you to get a "frozen shoulder". Forms: Return to Work Referrals: [facility] [Provider Group] - Follow up as needed JUAN ANTONIO JOSHI MD [ACTIVE STAFF] - Follow up as needed
== END 2018-08-12 11:24 | disposition home or self-care (01) ==
LOC: ER 09:57
DX: M25.511 Pain in right shoulder (principal); F17.200 Nicotine dependence, unspecified, uncomplicated; I10 Essential (primary) hypertension
CPT/HCPCS: 99283

== ENCOUNTER 2018-09-04 11:29 | Emergency (ER) | payer OTHER ==
[2018-09-04] MEDS ORDERED: IBUPROFEN 800 MG TABLET PO ONE (12:15)
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
[2018-09-04 14:47] VITALS: BP 148/101
== END 2018-09-04 15:00 | disposition home or self-care (01) ==
LOC: ER 11:29
DX: S40.011A Contusion of right shoulder, initial encounter (principal); S90.32XA Contusion of left foot, initial encounter; M25.511 Pain in right shoulder; M79.672 Pain in left foot; V27.0XXA Motorcycle driver injured in collision with fixed or stationary object in nontraffic accident, initial encounter; Y93.89 Activity, other specified; Y92.481 Parking lot as the place of occurrence of the external cause; F12.10 Cannabis abuse, uncomplicated
CPT/HCPCS: 99283